=== PATIENT | male | born 1980 | race Caucasian/White ===

== ENCOUNTER 2018-03-05 04:35 | Inpatient (IN) ==
--- NOTE | 2018-03-05 05:11 | Emergency Department Note ---
Disposition Clinical Impression: Suicidal ideation Depression Qualifiers: Depression Type: unspecified Qualified Code(s): F32.9 - Major depressive disorder, single episode, unspecified Disposition: Admitted As Inpatient Condition: Good Referrals: Jennifer Bonilla CNP [Primary Care Provider] - Time of Disposition: 06:36 Psych HPI - General Chief Complaint: ED Psychiatric Symptoms Stated Complaint: SI Time Seen by Provider: 03/05/18 04:56 Source: EMS Nursing Notes Reviewed: Yes Vital Signs Reviewed: Yes - History of Present Illness Pt complaint: suicidal ideation If medical clearance, reason: psychiatric condition Onset (ago): hour(s) Duration: getting worse History of similar episodes: Yes Improves with: none Worsens with: none Context: significant life stressor Alleged intoxication: No Associated Psychiatric Symptoms: depression, suicidal ideation Associated symptoms: Reports: vomiting Traumatic symptoms: neck injury (right anterior abrasion) Treatments prior to arrival: none Self harm or harm to others: admits thoughts of self harm, has plan (stabbing himself, overdose), has acted on plan (attempted stabbing his neck, ingesting bottle of [place] shampoo) - Related Data Previous Rx's Medication Instructions Recorded Ondansetron [Zofran] 4 mg PO Q8HR #10 tablet 11/09/15 Amoxicillin/Clavulanate [Augmentin] 875 mg PO BIDWM #20 tablet 10/16/16 HYDROcodone/Acet 5/325 mg [[place] 1 tab PO Q6H PRN #10 tab 10/16/16 5-325 mg] HYDROcodone/Acet 5/325 mg [[place] 1 tab PO Q6H PRN #10 tab 10/18/16 5-325 mg] Omeprazole [PriLOSEC] 20 mg PO DAILY #30 cap 10/18/16 Ondansetron ODT [Zofran ODT] 4 mg SL Q6HR #10 tab.rapdis 10/18/16 Amoxicillin/Clavulanate [Augmentin] 875 mg PO BIDWM #20 tablet 04/12/17 Ciprofloxacin/Dex *EAR* Susp 4 drop LEFT EAR BID #1 bottle 04/12/17 [Ciprodex *EAR* Susp] HYDROcodone/Acet 5/325 mg [[place] 1 tab PO Q4H PRN #10 tab 04/12/17 5-325 mg] Naproxen [Naprosyn] 500 mg PO BID PRN #20 tablet 04/12/17 Clindamycin [Cleocin] 300 mg PO TID 7 Days capsule 06/17/17 Ibuprofen [Motrin] 600 mg PO Q6HR PRN #30 tab 06/17/17 HYDROcodone/Acet 5/325 mg [[place] 1 tab PO Q4H PRN 1 Days #4 tab 01/30/18 5-325 mg] Amoxicillin [Amoxil] 1,000 mg PO BID #28 capsule 03/01/18 Allergies Allergy/AdvReac Type Severity Reaction Status Date / Time codeine Allergy Hives Verified 01/30/18 17:51 All systems ED: reviewed and negative except as stated. Review of Systems: As Per HPI Constitutional: Denies: fever, chills Eyes: Denies: eye pain ENT ED: Denies: ear pain, throat pain Cardiovascular: Denies: chest pain Respiratory: Denies: dyspnea Gastrointestinal: Reports: as per HPI Genitourinary: Denies: dysuria Musculoskeletal: Reports: as per HPI Integumentary: Denies: rash Psychiatric: Reports: depression, suicidal thoughts Endocrine: Denies: fatigue Hematological/Lymphatic: Denies: easy bleeding Allergic/Immunologic: Denies: facial swelling Past Medical History - Past Medical History Medical history: Reports: diabetes, seizures Psychiatric history: Reports: depression - Social History Smoking Status: Current every day smoker Smokeless Tobacco Status: No Alcohol use: Reports: occasionally Drug use: Reports: none Physical Exam - General Limitations: no limitations General appearance: alert, in no apparent distress - Head Head exam: normocephalic - Eye Eye exam: Present: EOMI. Absent: conjunctival injection - ENT ENT exam: normal oropharynx, mucous membranes moist - Neck Neck exam: Present: full ROM, other (erythema/abrasions over right anterior neck , no active bleeding ) - Chest Chest inspection: Present: normal inspection, symmetric chest wall rise - Respiratory Respiratory exam: Present: normal lung sounds bilaterally. Absent: respiratory distress, wheezes, stridor, accessory muscle use - Cardiovascular Cardiovascular exam: Present: regular rate, normal rhythm - Abdominal Exam Abdominal exam: Present: soft, Non-Tender - Extremities Exam Extremities exam: Present: normal inspection, full ROM, normal capillary refill - Back Exam Back exam: Present: full ROM. Absent: CVA tenderness (R), CVA tenderness (L) - Neurological Exam Neurological exam: Present: alert - Psychiatric Psychiatric exam: Present: normal affect, normal mood, suicidal ideation - Skin Skin exam: Present: warm, dry, intact, normal color. Absent: rash, cyanosis, diaphoresis Course Course Narrative: Patient is a 38-year-old male with stated history depression, and suicidal ideation. He arrives via squad. Squad reports that on the bike [place]. Patient states that he has feelings of depression, thoughts to hurt himself. He mentions he has not taken his Zoloft for a week. He mentions he had attempted to slice his wrist previously, and tonight he had drank a bottle of [place] shampoo and to hurt himself. I approximated his had occurred approximately 3-6 hours prior to his arrival. Patient is unsure the size bottle , but states it took 3 or 4 mouthfuls to swallow it. He does mention that throughout shortly after ingesting it. He denies any other drug or alcohol use. Patient seen and examined. his vitals within normal limits. We will attempt to medically clear him for psychiatric evaluation. I did call poison control, who advised for symptomatic treatment, otherwise no concern from shampoo who other than likely nausea and vomiting. - Reevaluation(s) Reevaluation #1: At this point it is the end of my shift, care of this patient will be transferred over to day shift provider Kadi Weeks CNP. Please see her documentation for further details. Patient is stable and resting in his exam room. His workup is all but complete appears to be unremarkable, however he still has been unable to void. Urine drug screen and urinalysis is still pending. Patient is agreeable to a straight catheter. At this point, I feel patient will be medically cleared, and evaluated by behavioral staff, and likely admitted, or transferred for inpatient treatment and stabilization. However please see [facility]'s documentation for final details on his disposition and any changes to this plan. Time: 06:33 Vital Signs Temperature 98.1 F 03/05/18 04:40 Pulse Rate 83 03/05/18 04:40 Respiratory Rate 18 03/05/18 04:40 Blood Pressure 144/93 03/05/18 04:40 O2 Sat by Pulse Oximetry 98 03/05/18 04:40 Temperature 98.1 F 03/05/18 04:40 Pulse Rate 79 03/05/18 06:38 Respiratory Rate 18 03/05/18 06:38 Blood Pressure 124/82 03/05/18 06:38 O2 Sat by Pulse Oximetry 95 03/05/18 06:38 Oxygen Delivery Oxygen Delivery Room Air Psych - Lab Data Result diagrams: 03/05/18 04:46 03/05/18 04:46 Lab Results 03/05/18 03/05/18 Range/Units 04:46 04:46 WBC 11.1 (4.3-11.1) K/mcL RBC 5.27 (4.19-5.50) M/mcL Hgb 16.0 (12.9-16.9) g/dL Hct 45.9 (37.5-50.1) % MCV 87.1 (83.0-100.0) fL MCH 30.4 (28.0-33.3) pg MCHC 34.9 (31.6-35.5) g/dL RDW 12.5 (11.5-14.5) % Plt Count 263 (140-400) K/mcL MPV 9.7 (9.4-12.4) fL Immature Gran % 0.4 (0-4) % Seg Neutrophils % 65.8 % Lymphocytes % 27.2 % Monocytes % 5.4 % Eosinophils % 0.7 % Basophils % 0.5 % Neutrophils # 7.3 (1.6-8.9) K/mcL Lymphocytes # 3.0 (0.6-4.6) K/mcL Monocytes # 0.6 (0.0-1.3) K/mcL Eosinophils # 0.1 (0.0-0.6) K/mcL Basophils # 0.1 (0.0-0.2) K/mcL Sodium 138 (136-145) mEq/L Potassium 3.5 (3.5-5.1) mEq/L Chloride 110 H (98-107) mEq/L Carbon Dioxide 21 L (23-29) mEq/L BUN 12 (6-20) mg/dL Creatinine 0.73 (0.70-1.30) mg/dL Est GFR ( Amer) > 60 (> 60) Est GFR (Non-Af Amer) > 60 (> 60) BUN/Creatinine Ratio 16 (6-26) Glucose 216 H (70-105) mg/dL Calculated Osmolality 292 (280-300) Calcium 9.1 (8.6-10.3) mg/dL Salicylates < 2.5 L (15.0-30.0) mg/dL Acetaminophen < 10 L (10-20) mcg/mL Ethyl Alcohol < 10 (Less than 10) mg/dL Psychiatric Medical Clearance - Medical Clearance Checklist Medical History: No Social History Section defined Current Vitals: Last Vital Signs Temp 98.1 F 03/05/18 04:40 Pulse 79 03/05/18 06:38 Resp 18 03/05/18 06:38 BP 124/82 03/05/18 06:38 Pulse Ox 95 03/05/18 06:38 Psychiatric Lab Panel: Drug Levels and Toxicity 03/05/18 04:46 Acetaminophen < 10 L Ethyl Alcohol < 10 Abnormal Labs: Abnormal lab results Chloride 110 mEq/L (98-107) H 03/05/18 04:46 Carbon Dioxide 21 mEq/L (23-29) L 03/05/18 04:46 Glucose 216 mg/dL (70-105) H 03/05/18 04:46 Salicylates < 2.5 mg/dL (15.0-30.0) L 03/05/18 04:46 Acetaminophen < 10 mcg/mL (10-20) L 03/05/18 04:46 Statement of Medical Clearance: I have evaluated the patient, reviewed diagnostic information, and certify that the patient's medical condition is sufficiently stable that transfer to the psychiatric unit does not pose a significant risk of deterioration.
[2018-03-05 05:14] LABS: Basophils # 0.1 K/mcL (0.0-0.2); Basophils % 0.5 %; Eosinophils # 0.1 K/mcL (0.0-0.6); Eosinophils % 0.7 %; Hematocrit 45.9 % (37.5-50.1); Immature Granulocytes % 0.4 % (0-4); Lymphocytes % 27.2 %; Mean Corpuscular HGB Conc 34.9 g/dL (31.6-35.5); Mean Corpuscular Hemoglobin 30.4 pg (28.0-33.3); Mean Corpuscular Volume 87.1 fL (83.0-100.0); Mean Platelet Volume 9.7 fL (9.4-12.4); Monocytes # 0.6 K/mcL (0.0-1.3); Monocytes % 5.4 %; Neutrophils # 7.3 K/mcL (1.6-8.9); Platelet Count 263 K/mcL (140-400); Red Blood Count 5.27 M/mcL (4.19-5.50); Red Cell Distribution Width 12.5 % (11.5-14.5); Segmented Neutrophils % 65.8 %
[2018-03-05 05:23] LABS: Acetaminophen < 10 mcg/mL (10-20); BUN/Creatinine Ratio 16 (6-26); Blood Urea Nitrogen 12 mg/dL (6-20); Calcium 9.1 mg/dL (8.6-10.3); Carbon Dioxide 21 mEq/L (23-29); Chloride 110 mEq/L (98-107); Ethanol < 10 mg/dL (Less than 10); Glucose 216 mg/dL (70-105); Osmolality,Calculated 292 (280-300); Potassium 3.5 mEq/L (3.5-5.1); Salicylate < 2.5 mg/dL (15.0-30.0); Sodium 138 mEq/L (136-145); eGFR For African Americans > 60 (> 60); eGFR For Non-African Americans > 60 (> 60)
[2018-03-05 07:03] LABS: Bilirubin,Urine Small (Negative); Blood,Urine Negative (Negative); Clarity,Urine Clear (Clear); Color,Urine Dark Yellow (Yellow); Glucose,Urine (UA) 250 mg/dL (Normal); Ketones,Urine Negative (Negative); Leukocyte Esterase,Urine Negative (Negative); Nitrite,Urine Negative (Negative); Protein,Urine Negative (Neg-Trace); Specific Gravity,Urine > 1.030 (1.010-1.025); Urobilinogen,Urine Normal (Normal)
[2018-03-05 07:22] LABS: Amphetamine Screen,Urine Negative ng/mL (Cutoff=1000); Barbiturate Screen,Urine Negative ng/mL (Cutoff=200); Benzodiazepines Screen,Urine Negative ng/mL (Cutoff=200); Cannabinoid Screen,Urine Negative ng/mL (Cutoff = 50); Cocaine Screen,Urine Negative ng/mL (Cutoff= 300); Opiate Screen,Urine Negative ng/mL (Cutoff=300); Phencyclidine Screen,Urine Negative ng/mL (Cutoff=25)
--- NOTE | 2018-03-05 09:46 | Emergency Department Note ---
Disposition Clinical Impression: Suicidal ideation Depression Qualifiers: Depression Type: unspecified Qualified Code(s): F32.9 - Major depressive disorder, single episode, unspecified Disposition: Still a Patient Condition: Good Referrals: Jennifer Bonilla CNP [Primary Care Provider] - Psych HPI - General Chief Complaint: ED Psychiatric Symptoms Stated Complaint: SI Time Seen by Provider: 03/05/18 04:56 Source: EMS - History of Present Illness Pt complaint: suicidal ideation Duration: getting worse Improves with: none Worsens with: none Associated symptoms: Reports: vomiting Treatments prior to arrival: none - Related Data Previous Rx's Medication Instructions Recorded Ondansetron [Zofran] 4 mg PO Q8HR #10 tablet 11/09/15 Amoxicillin/Clavulanate [Augmentin] 875 mg PO BIDWM #20 tablet 10/16/16 HYDROcodone/Acet 5/325 mg [[place] 1 tab PO Q6H PRN #10 tab 10/16/16 5-325 mg] HYDROcodone/Acet 5/325 mg [[place] 1 tab PO Q6H PRN #10 tab 10/18/16 5-325 mg] Omeprazole [PriLOSEC] 20 mg PO DAILY #30 cap 10/18/16 Ondansetron ODT [Zofran ODT] 4 mg SL Q6HR #10 tab.rapdis 10/18/16 Amoxicillin/Clavulanate [Augmentin] 875 mg PO BIDWM #20 tablet 04/12/17 Ciprofloxacin/Dex *EAR* Susp 4 drop LEFT EAR BID #1 bottle 04/12/17 [Ciprodex *EAR* Susp] HYDROcodone/Acet 5/325 mg [[place] 1 tab PO Q4H PRN #10 tab 04/12/17 5-325 mg] Naproxen [Naprosyn] 500 mg PO BID PRN #20 tablet 04/12/17 Clindamycin [Cleocin] 300 mg PO TID 7 Days capsule 06/17/17 Ibuprofen [Motrin] 600 mg PO Q6HR PRN #30 tab 06/17/17 HYDROcodone/Acet 5/325 mg [[place] 1 tab PO Q4H PRN 1 Days #4 tab 01/30/18 5-325 mg] Amoxicillin [Amoxil] 1,000 mg PO BID #28 capsule 03/01/18 Allergies Allergy/AdvReac Type Severity Reaction Status Date / Time codeine Allergy Hives Verified 01/30/18 17:51 Constitutional: Denies: fever, chills Eyes: Denies: eye pain ENT ED: Denies: ear pain, throat pain Cardiovascular: Denies: chest pain Respiratory: Denies: dyspnea Gastrointestinal: Reports: as per HPI Genitourinary: Denies: dysuria Musculoskeletal: Reports: as per HPI Integumentary: Denies: rash Psychiatric: Reports: depression, suicidal thoughts Endocrine: Denies: fatigue Hematological/Lymphatic: Denies: easy bleeding Allergic/Immunologic: Denies: facial swelling Past Medical History - Past Medical History Medical history: Reports: diabetes, seizures Psychiatric history: Reports: depression - Social History Smoking Status: Current every day smoker Smokeless Tobacco Status: No Alcohol use: Reports: occasionally Drug use: Reports: none Physical Exam - General Limitations: no limitations General appearance: alert, in no apparent distress Course Vital Signs Temperature 98.1 F 03/05/18 04:40 Pulse Rate 83 03/05/18 04:40 Respiratory Rate 18 03/05/18 04:40 Blood Pressure 144/93 03/05/18 04:40 O2 Sat by Pulse Oximetry 98 03/05/18 04:40 Temperature 98.6 F 03/05/18 08:32 Pulse Rate 82 03/05/18 08:32 Respiratory Rate 18 03/05/18 08:32 Blood Pressure 131/85 03/05/18 08:32 O2 Sat by Pulse Oximetry 95 03/05/18 08:32 Oxygen Delivery Oxygen Delivery Room Air Psych - MDM Narrative Medical decision making narrative: Received report from Dario Angeles PA-C, 38 year old male with history of depression presents with suicidal ideation. Plan: medical clearance and 1A evaluation. 11:00 Am, 1a completed evaluation, will discuss with Psychiatrist for treatment plan. Report given to Dr. Joce Mahajan due to shift change. - Lab Data Result diagrams: 03/05/18 04:46 03/05/18 04:46 Lab Results 03/05/18 03/05/18 03/05/18 Range/Units 04:46 04:46 06:52 WBC 11.1 (4.3-11.1) K/mcL RBC 5.27 (4.19-5.50) M/mcL Hgb 16.0 (12.9-16.9) g/dL Hct 45.9 (37.5-50.1) % MCV 87.1 (83.0-100.0) fL MCH 30.4 (28.0-33.3) pg MCHC 34.9 (31.6-35.5) g/dL RDW 12.5 (11.5-14.5) % Plt Count 263 (140-400) K/mcL MPV 9.7 (9.4-12.4) fL Immature Gran % 0.4 (0-4) % Seg Neutrophils % 65.8 % Lymphocytes % 27.2 % Monocytes % 5.4 % Eosinophils % 0.7 % Basophils % 0.5 % Neutrophils # 7.3 (1.6-8.9) K/mcL Lymphocytes # 3.0 (0.6-4.6) K/mcL Monocytes # 0.6 (0.0-1.3) K/mcL Eosinophils # 0.1 (0.0-0.6) K/mcL Basophils # 0.1 (0.0-0.2) K/mcL Sodium 138 (136-145) mEq/L Potassium 3.5 (3.5-5.1) mEq/L Chloride 110 H (98-107) mEq/L Carbon Dioxide 21 L (23-29) mEq/L BUN 12 (6-20) mg/dL Creatinine 0.73 (0.70-1.30) mg/dL Est GFR ( Amer) > 60 (> 60) Est GFR (Non-Af Amer) > 60 (> 60) BUN/Creatinine Ratio 16 (6-26) Glucose 216 H (70-105) mg/dL Calculated Osmolality 292 (280-300) Calcium 9.1 (8.6-10.3) mg/dL Urine Color Dark Yellow (Yellow) Urine Clarity Clear (Clear) Urine pH 5.0 (5.0-8.0) pH Units Ur Specific [place] > 1.030 H (1.010-1.025) Urine Protein Negative (Neg-Trace) mg/dL Urine Glucose (UA) 250 H (Normal) mg/dL Urine Ketones Negative (Negative) mg/dL Urine Blood Negative (Negative) Urine Nitrite Negative (Negative) Urine Bilirubin Small H (Negative) Urine Urobilinogen Normal (Normal) mg/dL Ur Leukocyte Esterase Negative (Negative) Salicylates < 2.5 L (15.0-30.0) mg/dL Urine Opiates Screen (Trhvkv=260) ng/mL Acetaminophen < 10 L (10-20) mcg/mL Ur Barbiturates Screen (Hgjdut=005) ng/mL Ur Phencyclidine Scrn (Cutoff=25) ng/mL Ur Amphetamines Screen (Pwecyc=6010) ng/mL U Benzodiazepines Scrn (Kguvwu=934) ng/mL Urine Cocaine Screen (Cutoff= 300) ng/mL U Marijuana (THC) Screen (Cutoff = 50) ng/mL Ethyl Alcohol < 10 (Less than 10) mg/dL 03/05/18 Range/Units 06:52 WBC (4.3-11.1) K/mcL RBC (4.19-5.50) M/mcL Hgb (12.9-16.9) g/dL Hct (37.5-50.1) % MCV (83.0-100.0) fL MCH (28.0-33.3) pg MCHC (31.6-35.5) g/dL RDW (11.5-14.5) % Plt Count (140-400) K/mcL MPV (9.4-12.4) fL Immature Gran % (0-4) % Seg Neutrophils % % Lymphocytes % % Monocytes % % Eosinophils % % Basophils % % Neutrophils # (1.6-8.9) K/mcL Lymphocytes # (0.6-4.6) K/mcL Monocytes # (0.0-1.3) K/mcL Eosinophils # (0.0-0.6) K/mcL Basophils # (0.0-0.2) K/mcL Sodium (136-145) mEq/L Potassium (3.5-5.1) mEq/L Chloride (98-107) mEq/L Carbon Dioxide (23-29) mEq/L BUN (6-20) mg/dL Creatinine (0.70-1.30) mg/dL Est GFR ( Amer) (> 60) Est GFR (Non-Af Amer) (> 60) BUN/Creatinine Ratio (6-26) Glucose (70-105) mg/dL Calculated Osmolality (280-300) Calcium (8.6-10.3) mg/dL Urine Color (Yellow) Urine Clarity (Clear) Urine pH (5.0-8.0) pH Units Ur Specific [place] (1.010-1.025) Urine Protein (Neg-Trace) mg/dL Urine Glucose (UA) (Normal) mg/dL Urine Ketones (Negative) mg/dL Urine Blood (Negative) Urine Nitrite (Negative) Urine Bilirubin (Negative) Urine Urobilinogen (Normal) mg/dL Ur Leukocyte Esterase (Negative) Salicylates (15.0-30.0) mg/dL Urine Opiates Screen Negative (Egrxfp=554) ng/mL Acetaminophen (10-20) mcg/mL Ur Barbiturates Screen Negative (Ynbdvh=367) ng/mL Ur Phencyclidine Scrn Negative (Cutoff=25) ng/mL Ur Amphetamines Screen Negative (Zygjoa=2021) ng/mL U Benzodiazepines Scrn Negative (Qrfhoj=036) ng/mL Urine Cocaine Screen Negative (Cutoff= 300) ng/mL U Marijuana (THC) Screen Negative (Cutoff = 50) ng/mL Ethyl Alcohol (Less than 10) mg/dL Psychiatric Medical Clearance - Medical Clearance Checklist Medical History: No Social History Section defined Current Vitals: Last Vital Signs Temp 98.6 F 03/05/18 08:32 Pulse 82 03/05/18 08:32 Resp 18 03/05/18 08:32 BP 131/85 03/05/18 08:32 Pulse Ox 95 03/05/18 08:32 Psychiatric Lab Panel: Drug Levels and Toxicity 03/05/18 03/05/18 04:46 06:52 Urine Opiates Screen Negative Acetaminophen < 10 L Ur Barbiturates Screen Negative Ur Phencyclidine Scrn Negative Ur Amphetamines Screen Negative U Benzodiazepines Scrn Negative Urine Cocaine Screen Negative U Marijuana (THC) Screen Negative Ethyl Alcohol < 10 Abnormal Labs: Abnormal lab results Chloride 110 mEq/L (98-107) H 03/05/18 04:46 Carbon Dioxide 21 mEq/L (23-29) L 03/05/18 04:46 Glucose 216 mg/dL (70-105) H 03/05/18 04:46 Ur Specific [place] > 1.030 (1.010-1.025) H 03/05/18 06:52 Urine Glucose (UA) 250 mg/dL (Normal) H 03/05/18 06:52 Urine Bilirubin Small (Negative) H 03/05/18 06:52 Salicylates < 2.5 mg/dL (15.0-30.0) L 03/05/18 04:46 Acetaminophen < 10 mcg/mL (10-20) L 03/05/18 04:46 Statement of Medical Clearance: I have evaluated the patient, reviewed diagnostic information, and certify that the patient's medical condition is sufficiently stable that transfer to the psychiatric unit does not pose a significant risk of deterioration. S.B.A.R. - S.B.A.Rm. Situation: Demographics, MOA Background: Presenting Complaint, Relevant PMH, Meds, & Allergies Assessment: Vital Signs, Course and respsone to treatment, Exam Concerns, Patient/Family Expectation, Pertinant Lab Results, Outstanding Labs Recommendation: Barrier(s) to disposition, Recommendation based on pending studies, treatments, or consults S.B.A.R. Report Given to: Dr. Hobson J
--- NOTE | 2018-03-05 14:24 | Emergency Department Note ---
Disposition Clinical Impression: Suicidal ideation Depression Qualifiers: Depression Type: unspecified Qualified Code(s): F32.9 - Major depressive disorder, single episode, unspecified Disposition: Admitted As Inpatient Condition: Good Referrals: Jennifer Bonilla CNP [Primary Care Provider] - Psych HPI - General Chief Complaint: ED Psychiatric Symptoms Stated Complaint: SI Time Seen by Provider: 03/05/18 04:56 Source: EMS Mode of arrival: ambulatory Limitations: no limitations Nursing Notes Reviewed: Yes Vital Signs Reviewed: Yes - History of Present Illness Duration: getting worse Improves with: none Worsens with: none Associated symptoms: Reports: vomiting Treatments prior to arrival: none - Related Data Home Medications Medication Instructions Recorded Confirmed No Known Home Drugs 03/05/18 03/05/18 Allergies Allergy/AdvReac Type Severity Reaction Status Date / Time codeine Allergy Hives Verified 03/05/18 12:21 Constitutional: Denies: fever, chills Eyes: Denies: eye pain ENT ED: Denies: ear pain, throat pain Cardiovascular: Denies: chest pain Respiratory: Denies: dyspnea Gastrointestinal: Reports: as per HPI Genitourinary: Denies: dysuria Musculoskeletal: Reports: as per HPI Integumentary: Denies: rash Psychiatric: Reports: depression, suicidal thoughts Endocrine: Denies: fatigue Hematological/Lymphatic: Denies: easy bleeding Allergic/Immunologic: Denies: facial swelling Past Medical History - Past Medical History Medical history: Reports: diabetes, seizures Psychiatric history: Reports: depression - Social History Smoking Status: Current every day smoker Smokeless Tobacco Status: No Alcohol use: Reports: occasionally Drug use: Reports: none Physical Exam - General Limitations: no limitations General appearance: alert, in no apparent distress Course Vital Signs Temperature 98.1 F 03/05/18 04:40 Pulse Rate 83 03/05/18 04:40 Respiratory Rate 18 03/05/18 04:40 Blood Pressure 144/93 03/05/18 04:40 O2 Sat by Pulse Oximetry 98 03/05/18 04:40 Temperature 98.6 F 03/05/18 08:32 Pulse Rate 83 03/05/18 13:33 Respiratory Rate 14 03/05/18 13:33 Blood Pressure 120/74 03/05/18 13:33 O2 Sat by Pulse Oximetry 95 03/05/18 13:33 Oxygen Delivery Oxygen Delivery Room Air Psych - MDM Narrative Medical decision making narrative: Patient received in sign out pending behavioral [facility] evaluation and disposition. [facility] health evaluated the patient and recommend that he be admitted to for further care and evaluation. Patient will be admitted to Dr. Monteiro - Lab Data Result diagrams: 03/05/18 04:46 03/05/18 04:46 Lab Results 03/05/18 03/05/18 03/05/18 Range/Units 04:46 04:46 06:52 WBC 11.1 (4.3-11.1) K/mcL RBC 5.27 (4.19-5.50) M/mcL Hgb 16.0 (12.9-16.9) g/dL Hct 45.9 (37.5-50.1) % MCV 87.1 (83.0-100.0) fL MCH 30.4 (28.0-33.3) pg MCHC 34.9 (31.6-35.5) g/dL RDW 12.5 (11.5-14.5) % Plt Count 263 (140-400) K/mcL MPV 9.7 (9.4-12.4) fL Immature Gran % 0.4 (0-4) % Seg Neutrophils % 65.8 % Lymphocytes % 27.2 % Monocytes % 5.4 % Eosinophils % 0.7 % Basophils % 0.5 % Neutrophils # 7.3 (1.6-8.9) K/mcL Lymphocytes # 3.0 (0.6-4.6) K/mcL Monocytes # 0.6 (0.0-1.3) K/mcL Eosinophils # 0.1 (0.0-0.6) K/mcL Basophils # 0.1 (0.0-0.2) K/mcL Sodium 138 (136-145) mEq/L Potassium 3.5 (3.5-5.1) mEq/L Chloride 110 H (98-107) mEq/L Carbon Dioxide 21 L (23-29) mEq/L BUN 12 (6-20) mg/dL Creatinine 0.73 (0.70-1.30) mg/dL Est GFR ( Amer) > 60 (> 60) Est GFR (Non-Af Amer) > 60 (> 60) BUN/Creatinine Ratio 16 (6-26) Glucose 216 H (70-105) mg/dL Calculated Osmolality 292 (280-300) Calcium 9.1 (8.6-10.3) mg/dL Urine Color Dark Yellow (Yellow) Urine Clarity Clear (Clear) Urine pH 5.0 (5.0-8.0) pH Units Ur Specific [place] > 1.030 H (1.010-1.025) Urine Protein Negative (Neg-Trace) mg/dL Urine Glucose (UA) 250 H (Normal) mg/dL Urine Ketones Negative (Negative) mg/dL Urine Blood Negative (Negative) Urine Nitrite Negative (Negative) Urine Bilirubin Small H (Negative) Urine Urobilinogen Normal (Normal) mg/dL Ur Leukocyte Esterase Negative (Negative) Salicylates < 2.5 L (15.0-30.0) mg/dL Urine Opiates Screen (Nwxupg=319) ng/mL Acetaminophen < 10 L (10-20) mcg/mL Ur Barbiturates Screen (Ihehfn=998) ng/mL Ur Phencyclidine Scrn (Cutoff=25) ng/mL Ur Amphetamines Screen (Ftmiic=6796) ng/mL U Benzodiazepines Scrn (Tmaibn=575) ng/mL Urine Cocaine Screen (Cutoff= 300) ng/mL U Marijuana (THC) Screen (Cutoff = 50) ng/mL Ethyl Alcohol < 10 (Less than 10) mg/dL 03/05/18 Range/Units 06:52 WBC (4.3-11.1) K/mcL RBC (4.19-5.50) M/mcL Hgb (12.9-16.9) g/dL Hct (37.5-50.1) % MCV (83.0-100.0) fL MCH (28.0-33.3) pg MCHC (31.6-35.5) g/dL RDW (11.5-14.5) % Plt Count (140-400) K/mcL MPV (9.4-12.4) fL Immature Gran % (0-4) % Seg Neutrophils % % Lymphocytes % % Monocytes % % Eosinophils % % Basophils % % Neutrophils # (1.6-8.9) K/mcL Lymphocytes # (0.6-4.6) K/mcL Monocytes # (0.0-1.3) K/mcL Eosinophils # (0.0-0.6) K/mcL Basophils # (0.0-0.2) K/mcL Sodium (136-145) mEq/L Potassium (3.5-5.1) mEq/L Chloride (98-107) mEq/L Carbon Dioxide (23-29) mEq/L BUN (6-20) mg/dL Creatinine (0.70-1.30) mg/dL Est GFR ( Amer) (> 60) Est GFR (Non-Af Amer) (> 60) BUN/Creatinine Ratio (6-26) Glucose (70-105) mg/dL Calculated Osmolality (280-300) Calcium (8.6-10.3) mg/dL Urine Color (Yellow) Urine Clarity (Clear) Urine pH (5.0-8.0) pH Units Ur Specific [place] (1.010-1.025) Urine Protein (Neg-Trace) mg/dL Urine Glucose (UA) (Normal) mg/dL Urine Ketones (Negative) mg/dL Urine Blood (Negative) Urine Nitrite (Negative) Urine Bilirubin (Negative) Urine Urobilinogen (Normal) mg/dL Ur Leukocyte Esterase (Negative) Salicylates (15.0-30.0) mg/dL Urine Opiates Screen Negative (Rdzyhw=715) ng/mL Acetaminophen (10-20) mcg/mL Ur Barbiturates Screen Negative (Mobvmu=218) ng/mL Ur Phencyclidine Scrn Negative (Cutoff=25) ng/mL Ur Amphetamines Screen Negative (Plavjq=4127) ng/mL U Benzodiazepines Scrn Negative (Rpnyiw=262) ng/mL Urine Cocaine Screen Negative (Cutoff= 300) ng/mL U Marijuana (THC) Screen Negative (Cutoff = 50) ng/mL Ethyl Alcohol (Less than 10) mg/dL Psychiatric Medical Clearance - Medical Clearance Checklist Medical History: No Social History Section defined Current Vitals: Last Vital Signs Temp 98.6 F 03/05/18 08:32 Pulse 83 03/05/18 13:33 Resp 14 03/05/18 13:33 BP 120/74 03/05/18 13:33 Pulse Ox 95 03/05/18 13:33 Psychiatric Lab Panel: Drug Levels and Toxicity 03/05/18 03/05/18 04:46 06:52 Urine Opiates Screen Negative Acetaminophen < 10 L Ur Barbiturates Screen Negative Ur Phencyclidine Scrn Negative Ur Amphetamines Screen Negative U Benzodiazepines Scrn Negative Urine Cocaine Screen Negative U Marijuana (THC) Screen Negative Ethyl Alcohol < 10 Abnormal Labs: Abnormal lab results Chloride 110 mEq/L (98-107) H 03/05/18 04:46 Carbon Dioxide 21 mEq/L (23-29) L 03/05/18 04:46 Glucose 216 mg/dL (70-105) H 03/05/18 04:46 Ur Specific [place] > 1.030 (1.010-1.025) H 03/05/18 06:52 Urine Glucose (UA) 250 mg/dL (Normal) H 03/05/18 06:52 Urine Bilirubin Small (Negative) H 03/05/18 06:52 Salicylates < 2.5 mg/dL (15.0-30.0) L 03/05/18 04:46 Acetaminophen < 10 mcg/mL (10-20) L 03/05/18 04:46 Statement of Medical Clearance: I have evaluated the patient, reviewed diagnostic information, and certify that the patient's medical condition is sufficiently stable that transfer to the psychiatric unit does not pose a significant risk of deterioration.
[2018-03-05] MEDS ORDERED: hydrOXYzine pamoate 25 MG CAPSULE PO PRN (15:39)
[2018-03-05] MEDS ORDERED: MOM Conc 10 ML UD.LIQ PO PRN (15:39)
[2018-03-05] MEDS ORDERED: Haloperidol Lactate 5 MG/ML VIAL IM PRN (15:39)
[2018-03-05] MEDS ORDERED: Mag Hydrox/Al Hydrox/Simeth 30 ML UDC PO PRN (15:39)
[2018-03-05] MEDS ORDERED: *HR* LORazepam 1 MG TABLET PO PRN ×2 (15:39→16:40)
[2018-03-05] MEDS ORDERED: *HR* LORazepam 2 MG/ML VIAL IM PRN ×2 (15:39→16:39)
[2018-03-05] MEDS ORDERED: Nicotine 21 MG PATCH.TD24 TD SCH (15:45)
[2018-03-05] MEDS ORDERED: Ondansetron ODT 4 MG TAB.RAPDIS SL PRN (16:29)
[2018-03-05] MEDS ORDERED: Ondansetron 4 MG/2 ML VIAL IM PRN (16:29)
[2018-03-05] MEDS ORDERED: *HR* Promethazine 25 MG/ML VIAL IM PRN (16:35)
[2018-03-05] MEDS: Ibuprofen 400 MG TABLET PO PRN ×2 (19:19→22:33)
[2018-03-05] MEDS: traZODone 50 MG TABLET PO PRN (22:33)
[2018-03-06] MEDS: Nicotine 21 MG PATCH.TD24 TD SCH (10:37)
--- NOTE | 2018-03-06 12:16 | Psychiatry History & Physical ---
Date of Encounter: 03/06/18 Time of Encounter: 11:15 History of Present Illness Patient Stated Chief Complaint: I am depressed, and not taking my antidepressants Medicare Admission Attestation: For traditional Medicare patients the provided hospital inpatient services are reasonable and necessary and in the case of services not specified as inpatient -only under 42 CFR 419.22 (n), that they are appropriately provided as inpatient services in accordance 42 CFR 412.3. For Critical Access Hospital the patient may reasonably be expected to be discharged or transferred to a hospital within 96 hours after admission to the Critical Access Hospital. Admitted From: Emergency Dept History of Present Illness: Pt is a 38yo ,, male, x1 with a divorce pending, 2 childeren (10D, 13S) who presents for Depression with SI, and personality D/O. Patient states that he has feelings of depression, thoughts to hurt himself. Pt noted he has not taken his Zoloft for a week or so. Pt noted a hx of prievisous suicide attempt via "slicing my wrist. " Pt noted he had drank a bottle of Panteen shampoo to hurt himself. Patient is unsure the size bottle, but states it took 3 or 4 mouthfuls to swallow it. Pt agreed to restart his zoloft and ask for additional medication to help with depression. Pt was educated on the risks benifits and side-effects of abilify and agreed to initiate it. Pt noted he is doing much better. Pt denied any side effects to current medications. Pt noted he felt safe and comfortable on the unit. Pt was in agreement with current treatment plan. Pt noted that he is doing alright today. Pt noted he slept about 11 hours last night. Pt noted his appetite is great. Pt rated his depression a 1, on a scale of zero to ten with ten being the worst and zero being none. Pt rate his anxiety a 4, on the same scale. Pt denied any auditory or visiual hallucinations. Pt denied any current thoughts to harm himself or anyone else. Pt noted that his parents and help support him. Pt noted that his Highest level of education is [employer]. Pt noted he is currently unemployed. Pt noted he currently lives with a friend. PT denied any family mental health hx of suicides. PT noted both his mother and brother are bipolar. Pt denies any current legal issues except his divorce. No TD noted, AIMS=0 MSE: Alert and Oriented x4 Appearance: appropriately groomed dressed in civilian attire Behavior: friendly, polite, courteous Speech: fluent, normal tone, normal rate Mood: better Affect: mood congruent Thought content: no HI noted, no SI noted, no delusions noted Psychosis: none noted, currently does not appear to be responding to internal stimuli. Thought Process: linear logical, goal directed. Judgment: questionable. Insight: good. Assessment/Plan 1.Interval hx 2.Continue current medications 3.Review current labs 4.Pt had an opportunity to ask questions and discuss current treatment plan. 5.Supportive therapy was provided 6.Pt encouraged to consider group or individual therapy 7.Pt was in agreement with treatment plan. 8.Pt was educated on the risks benefits and side effects of current medications and treatment plan. Past Med Surg Social Fam HX - Past Medical History Medical history: diabetes, seizures - Past Psychiatric History Psychiatric history: Reports: depression Family psychiatric history: Yes Family Psychiatric History Details: mother and brother bipolar Family History of Suicide: None - Social History Smoking Status: Current every day smoker Smokeless Tobacco Status: No Alcohol use: occasionally Drug use: none Medications & Allergies No Known Home Drugs 03/05/18 [History] 3 Allergy/AdvReac Type Severity Reaction Status Date / Time codeine Allergy Hives Verified 03/05/18 12:21 Exam - Constitutional Vitals: Temp Pulse Resp BP Pulse Ox 97.5 F L 77 14 126/90 95 03/06/18 09:00 03/06/18 09:00 03/06/18 09:00 03/06/18 09:00 03/05/18 13:33 - Psychiatric Patient Orientation: Yes Person, Yes Time, Yes Place, Yes Circumstance Level of alertness: Alert Behavior: calm, cooperative Psychomotor activity: Normal Eye Contact: Maintains Eye Contact Mood Description: Euthymic/stable Affect description: congruent with mood Speech Volume: Normal Speech pattern: normal rate, normal rhythm, normal tone, fluent Language & Vocabulary: consistent with education Thought Process: Intact, Logical, Linear, Goal Oriented Thought Content: Yes Intact Attention Span Ability: Capable of Focused Attention Memory Description: Grossly Intact Patient Reliability: Reliable Historian Fund of knowledge: Yes average Intelligence Estimate: Average Judgment: Fair Insight: Full Results - Labs Labs: Laboratory Last Values WBC 11.1 K/mcL (4.3-11.1) 03/05/18 04:46 RBC 5.27 M/mcL (4.19-5.50) 03/05/18 04:46 Hgb 16.0 g/dL (12.9-16.9) 03/05/18 04:46 Hct 45.9 % (37.5-50.1) 03/05/18 04:46 MCV 87.1 fL (83.0-100.0) 03/05/18 04:46 MCH 30.4 pg (28.0-33.3) 03/05/18 04:46 MCHC 34.9 g/dL (31.6-35.5) 03/05/18 04:46 RDW 12.5 % (11.5-14.5) 03/05/18 04:46 Plt Count 263 K/mcL (140-400) 03/05/18 04:46 MPV 9.7 fL (9.4-12.4) 03/05/18 04:46 Immature Gran % 0.4 % (0-4) 03/05/18 04:46 Seg Neutrophils % 65.8 % 03/05/18 04:46 Lymphocytes % 27.2 % 03/05/18 04:46 Monocytes % 5.4 % 03/05/18 04:46 Eosinophils % 0.7 % 03/05/18 04:46 Basophils % 0.5 % 03/05/18 04:46 Neutrophils # 7.3 K/mcL (1.6-8.9) 03/05/18 04:46 Lymphocytes # 3.0 K/mcL (0.6-4.6) 03/05/18 04:46 Monocytes # 0.6 K/mcL (0.0-1.3) 03/05/18 04:46 Eosinophils # 0.1 K/mcL (0.0-0.6) 03/05/18 04:46 Basophils # 0.1 K/mcL (0.0-0.2) 03/05/18 04:46 Sodium 138 mEq/L (136-145) 03/05/18 04:46 Potassium 3.5 mEq/L (3.5-5.1) 03/05/18 04:46 Chloride 110 mEq/L (98-107) H 03/05/18 04:46 Carbon Dioxide 21 mEq/L (23-29) L 03/05/18 04:46 BUN 12 mg/dL (6-20) 03/05/18 04:46 Creatinine 0.73 mg/dL (0.70-1.30) 03/05/18 04:46 Est GFR ( Amer) > 60 (> 60) 03/05/18 04:46 Est GFR (Non-Af Amer) > 60 (> 60) 03/05/18 04:46 BUN/Creatinine Ratio 16 (6-26) 03/05/18 04:46 Glucose 216 mg/dL (70-105) H 03/05/18 04:46 Calculated Osmolality 292 (280-300) 03/05/18 04:46 Calcium 9.1 mg/dL (8.6-10.3) 03/05/18 04:46 Urine Color Dark Yellow (Yellow) 03/05/18 06:52 Urine Clarity Clear (Clear) 03/05/18 06:52 Urine pH 5.0 pH Units (5.0-8.0) 03/05/18 06:52 Ur Specific [place] > 1.030 (1.010-1.025) H 03/05/18 06:52 Urine Protein Negative mg/dL (Neg-Trace) 03/05/18 06:52 Urine Glucose (UA) 250 mg/dL (Normal) H 03/05/18 06:52 Urine Ketones Negative mg/dL (Negative) 03/05/18 06:52 Urine Blood Negative (Negative) 03/05/18 06:52 Urine Nitrite Negative (Negative) 03/05/18 06:52 Urine Bilirubin Small (Negative) H 03/05/18 06:52 Urine Urobilinogen Normal mg/dL (Normal) 03/05/18 06:52 Ur Leukocyte Esterase Negative (Negative) 03/05/18 06:52 Salicylates < 2.5 mg/dL (15.0-30.0) L 03/05/18 04:46 Urine Opiates Screen Negative ng/mL (Wwladb=614) 03/05/18 06:52 Acetaminophen < 10 mcg/mL (10-20) L 03/05/18 04:46 Ur Barbiturates Screen Negative ng/mL (Tromrn=869) 03/05/18 06:52 Ur Phencyclidine Scrn Negative ng/mL (Cutoff=25) 03/05/18 06:52 Ur Amphetamines Screen Negative ng/mL (Kdjdjv=6550) 03/05/18 06:52 U Benzodiazepines Scrn Negative ng/mL (Tjaoeq=734) 03/05/18 06:52 Urine Cocaine Screen Negative ng/mL (Cutoff= 300) 03/05/18 06:52 U Marijuana (THC) Screen Negative ng/mL (Cutoff = 50) 03/05/18 06:52 Ethyl Alcohol < 10 mg/dL (Less than 10) 03/05/18 04:46 Assessment and Plan (1) Suicidal ideation Current visit: Yes Status: Acute Plan: Admit inpatient for safety and stabilization Risks, benefits, side effects, alternatives discussed w/pt: Yes Patient agreeable to treatment: Yes (2) Depression Current visit: Yes Status: Acute Plan: Admit inpatient for safety and stabilization Risks, benefits, side effects, alternatives discussed w/pt: Yes Patient agreeable to treatment: Yes Qualifiers: Depression Type: unspecified Qualified Code(s): F32.9 - Major depressive disorder, single episode, unspecified
[2018-03-06] MEDS: ARIPiprazole 2 MG TABLET PO SCH (14:58)
[2018-03-06] MEDS: traZODone 50 MG TABLET PO PRN (20:47)
[2018-03-06] MEDS: Ibuprofen 400 MG TABLET PO PRN (20:48)
--- NOTE | 2018-03-07 08:27 | Psychiatry Progress Note ---
Date of Encounter: 03/07/18 Time of Encounter: 08:00 Results - Vital Signs Vital Signs: Temp Pulse Resp BP Pulse Ox 98.7 F 77 14 133/84 95 03/06/18 20:09 03/06/18 20:09 03/06/18 20:09 03/06/18 20:09 03/05/18 13:33 Assessment and Plan (1) Suicidal ideation Current visit: Yes Status: Acute Risks, benefits, side effects, alternatives discussed w/pt: Yes Patient agreeable to treatment: Yes (2) Depression Current visit: Yes Status: Acute Risks, benefits, side effects, alternatives discussed w/pt: Yes Patient agreeable to treatment: Yes Qualifiers: Depression Type: unspecified Qualified Code(s): F32.9 - Major depressive disorder, single episode, unspecified Consult Discharge Plan - Plan Psychiatry Exam - Constitutional Vitals: Temp Pulse Resp BP Pulse Ox 98.7 F 77 14 133/84 95 03/06/18 20:09 03/06/18 20:09 03/06/18 20:03/06/18 20:03/05/18 13:33
[2018-03-07] MEDS: ARIPiprazole 2 MG TABLET PO SCH (09:06)
[2018-03-07] MEDS: Nicotine 21 MG PATCH.TD24 TD SCH (09:06)
[2018-03-07 09:57] VITALS: BP 124/79
--- NOTE | 2018-03-07 19:36 | Discharge Summary ---
Date of Encounter: 03/08/18 Time of Encounter: 08:00 Diagnosis - Discharge Diagnosis (1) Suicidal ideation Priority: Primary Status: Acute (2) Depression Priority: Primary Status: Acute Qualifiers: Depression Type: unspecified Qualified Code(s): F32.9 - Major depressive disorder, single episode, unspecified Medications - Discharge Medications Prescriptions: ARIPiprazole [Abilify] 2 mg PO DAILY #30 tablet Sertraline [Zoloft] 100 mg PO DAILY #30 tablet ARIPiprazole [Abilify] 2 mg PO DAILY #30 tablet 03/07/18 [Rx] Sertraline [Zoloft] 100 mg PO DAILY #30 tablet 03/07/18 [Rx] 3 Allergy/AdvReac Type Severity Reaction Status Date / Time codeine Allergy Hives Verified 03/05/18 12:21 Provider Date of admission: 03/05/18 14:45 Primary care physician: PCP NONE Discharging clinician: Perez Monteiro Psychiatry Exam - Constitutional Vitals: Temp Pulse Resp BP Pulse Ox 97.7 F 67 20 124/79 95 03/07/18 09:00 03/07/18 09:00 03/07/18 09:00 03/07/18 09:00 03/05/18 13:33 General appearance: age & developmentally appropriate - Musculoskeletal Gait: normal Strength & Tone: normal for patient - Psychiatric Patient Orientation: Yes Person, Yes Time, Yes Place Level of alertness: Alert Behavior: calm, cooperative Psychomotor activity: Normal Eye Contact: Maintains Eye Contact Mood Description: Euthymic/stable Affect description: congruent with mood Speech Volume: Normal Speech pattern: normal rate Language & Vocabulary: consistent with education Thought Process: Intact, Logical, Linear, Goal Oriented Thought Content: Yes Intact Attention Span Ability: Capable of Focused Attention Memory Description: Grossly Intact Patient Reliability: Reliable Historian Fund of knowledge: Yes average Intelligence Estimate: Average Judgment: Good Insight: Full Hospital Course Hospital course: Pt is a 38yo ,, male, x1 with a divorce pending, 2 childeren ( 10D, 13S) who presents for Depression with SI, and personality D/O. Pt noted he is doing much better today. Pt noted he felt safe and comfortable to discharge home. Pt denied any side effects to current medications. Pt noted he felt safe and comfortable on the unit. Pt was in agreement with current treatment plan. Pt noted that he is doing really good today. Pt noted he slept about 11 hours last night. Pt noted his appetite is great. Pt rated his depression a 0, on a scale of zero to ten with ten being the worst and zero being none. Pt rate his anxiety a 0, on the same scale. Pt denied any auditory or visiual hallucinations. Pt denied any current thoughts to harm himself or anyone else. No TD noted, AIMS=0 MSE: Alert and Oriented x4 Appearance: appropriately groomed dressed in civilian attire Behavior: friendly, polite, courteous Speech: fluent, normal tone, normal rate Mood: good Affect: mood congruent Thought content: no HI noted, no SI noted, no delusions noted Psychosis: none noted, currently does not appear to be responding to internal stimuli. Thought Process: linear logical, goal directed. Judgment: fair. Insight: good. Assessment/Plan 1.Interval hx 2.Continue current medications 3.Review current labs 4.Pt had an opportunity to ask questions and discuss current treatment plan. 5.Supportive therapy was provided 6.Pt encouraged to consider group or individual therapy 7.Pt was in agreement with treatment plan. 8.Pt was educated on the risks benefits and side effects of current medications and treatment plan. 9. Discharge pt home 10. Abstain from any alcohol or illicit substances 11. Follow up with all scheduled appointments 12. take all medications as prescribed. Time spent discussing smoking cessation with patient: 3 to 10 minutes Does patient wish to continue nicotine replacement upon disc: No - Time Spent with Patient Total time spent providing and/or coordinating discharge services: Greater than 30 minutes Assessment and Plan - Patient/Caregiver Discharge Instructions Activity: resume usual activities as tolerated Diet: regular diet - Follow up Plan Follow up with: Denise Garcia [facility] [Outside] - 03/12/18 9:30 am (The above appointment is with Greg Watson for outpatient mental health counseling services. Please complete and bring the [facility] intake packet you were provided at the hospital to this appointment. When you come to your first appointment, you will be meeting with business office staff, meeting with a counselor, and developing a treatment plan. You will receive follow- up appointments for on- going services, which could include community support, mental health and substance abuse counseling, groups/partial hospitalization programming and medication assisted treatment. You will also need to bring the following to your first appointment as well: 1) proof of household income (two consecutive pay stubs, social security award letter, bank statement, statement letter from [facility], child support statement, IRS 1040 or W2 form, or a statement from the person who financially supports you stating they help provide for your basic needs), 2) proof of residency (drivers license, a piece of mail showing your address, a statement from person you live with verifying you live at their address), 3) your social security card, 4) photo ID, 5) your insurance card (if you have commercial insurance you must call to obtain a prior authorization number before you arrive to your first appointment) and 6) if you do not have insurance but have applied for Medicaid, please bring verification you have applied. The above appointment(s) reflects first availability. You may contact the office regularly to check for cancellations that may allow you to be seen sooner.) Jennifer Bonilla, AMILCAR [Advanced Practice Nurse] - 03/29/18 11:30 am (The above appointment is with Jennifer Bonilla for primary health care and medication management services.) Overall status at discharge: Stable Disposition: Home, Self-Care Quality - Multiple Antipsychotics Patient discharged on 2 or more antipsychotic medications: No (pt only on abilify)
== END 2018-03-07 20:18 | disposition home or self-care (01) | DRG 881 ==
LOC: EMEROO 04:35 → 1ANU 14:40
PROVIDERS: ADMIT General Practice; ATTEND General Practice

== ENCOUNTER 2018-06-24 16:04 | Observation (INO) ==
[2018-06-24] MEDS ORDERED: Isovue-370 500 ML INFUS..BTL IV ONE (16:41)
--- NOTE | 2018-06-24 16:41 | Emergency Department Note ---
Disposition Clinical Impression: Right facial numbness Chest pain Qualifiers: Chest pain type: unspecified Qualified Code(s): R07.9 - Chest pain, unspecified Disposition: Admitted As Inpatient Condition: Fair Referrals: Jennifer Bonilla CNP [Primary Care Provider] - Forms: ED Satisfaction Letter, Work/School Release Time of Disposition: 20:42 Neuro HPI - General Chief Complaint: ED General Medical Stated Complaint: "R side face numb,dizzy,everything hurts" Time Seen by Provider: 06/24/18 16:22 Source: patient Mode of arrival: ambulatory Limitations: no limitations Nursing Notes Reviewed: Yes Vital Signs Reviewed: Yes - History of Present Illness HPI Narrative: I have re-performed and reviewed the history documented by the medical student, and I confirm its accuracy except as noted below: Add to history of present illness: Chest pain is left-sided, described as sharp in nature, constant, does not radiate anywhere else, no associated dyspnea, does not worsen with exertion, no injuries, no rashes. For headache- denies any fevers, neck stiffness, headache was there upon wakening and was not sudden onset, did not wake him up out of sleep. - Related Data Home Medications: Previous Rx's Medication Instructions Recorded ARIPiprazole [Abilify] 2 mg PO DAILY #30 tablet 03/07/18 Sertraline [Zoloft] 100 mg PO DAILY #30 tablet 03/07/18 Acetaminophen [Tylenol] 500 mg PO Q6HR PRN #20 tablet 03/26/18 Amoxicillin/Clavulanate [Augmentin] 875 mg PO BIDWM #20 tablet 03/26/18 Naproxen [Naprosyn] 500 mg PO BID PRN #20 tablet 03/26/18 Allergies/Adverse Reactions: Allergies Allergy/AdvReac Type Severity Reaction Status Date / Time codeine Allergy Hives Verified 03/05/18 12:21 All systems ED: reviewed and negative except as stated. Constitutional: Denies: fever ENT ED: Reports: other (nasal congestion) Cardiovascular: Reports: chest pain Respiratory: Denies: cough, dyspnea Gastrointestinal: Denies: abdominal pain, nausea, vomiting, diarrhea Genitourinary: Denies: urgency, dysuria Integumentary: Denies: rash Neurological: Reports: headache, numbness (right face). Denies: weakness, paresthesias Past Medical History - Past Medical History Attestation: Yes The following information was validated with the patient. Source: patient Medical history: Reports: cancer, diabetes, seizures Psychiatric history: Reports: depression, prior suicide attempt - Social History Smoking Status: Current every day smoker Smokeless Tobacco Status: No Alcohol use: Reports: none Drug use: Reports: none Physical Exam - General Limitations: no limitations General appearance: alert, in no apparent distress - Head Head exam: atraumatic, normocephalic, normal inspection - Eye Eye exam: Present: normal appearance, PERRL, EOMI - ENT ENT exam: mucous membranes moist, other (right ear surgery, scarring of rigth TM ; ) - Neck Neck exam: Present: normal inspection, full ROM, trachea midline - Chest Chest inspection: Present: normal inspection, symmetric chest wall rise - Respiratory Respiratory exam: Present: normal lung sounds bilaterally - Cardiovascular Cardiovascular exam: Present: regular rate, normal rhythm, normal heart sounds - Abdominal Exam Abdominal exam: Present: soft, Non-Tender. Absent: tenderness, distention, guarding, rebound, rigidity - Extremities Exam Extremities exam: Present: normal inspection, full ROM. Absent: tenderness, pedal edema - Neurological Exam Neurological exam: Present: alert, oriented X3 - Expanded Neurological Exam Patient oriented to: Present: person, place, time Speech: Present: fluid speech Cranial nerves: EOM function (II, III, IV, ): Normal, facial sensation (V): Abnormal Right, facial palsy (VII): Normal, spinal accessory function (XI): Normal, tongue deviation (XII): Normal Motor strength - LUE: 5/5 Motor strength - RUE: 5/5 Motor strength - LLE: 5/5 Motor strength - RLE: 5/5 Coma Scale Eye Opening: Spontaneous Coma Scale Motor Response: Obeys Commands Coma Scale Verbal Response: Oriented Coma Scale Total: 15 - Psychiatric Psychiatric exam: Present: normal affect, normal mood - Skin Skin exam: Present: warm, dry, intact, normal color Course Course Narrative: NIH of 1 on physical exam due to right sensation decrease of the right forehead , right cheek, right chin. Patient also had symptoms sinus congestion. Otherwise, the rest of the physical exam was fairly benign. Currently concern for something leg venous sinus thrombosis due to loss of sensation of the right side of the face without any motor involvement. MRV ordered for further assessment. CT the head with noncontrast was also ordered to assess for anything like stroke. We will obtain basic blood work, troponin level, EKG, chest x-ray due to complaint of left sided chest discomfort. Patient will require admission for chest pain and for right-sided facial numbness after workup is completed. 19:36 No major abnormalities. Trop negative. EKG showed NSR with no acute ST changes. CXR negative. Head CT negative. MRV negative. Patient given aspirin , still having some left sided chest discomfort. Blood pressure systolic 110, do not want to give nitroglycerin at this time due to fear of hypotension. We will give the patient fentanyl for pain control instead. We will admit to the hospitalist for further CVA workup for right sided facial numbness, chest pain rule out. 19:50 spoke with hospitalist, Dr. Torres. He wanted d-dimer and urine drug screen before accepting. These have been ordered at this time. 20:35 d-dimer negative and urine drug screen negative. Will re-page hospitalist. Chest X-Ray 06/24/18 16:38 IMPRESSION: No radiographic evidence of acute cardiopulmonary disease. D/ / Loyd Augustine / Loyd Augustine Interpreting Provider: Loyd Augustine Head CT 06/24/18 17:03 IMPRESSION: No acute intracranial abnormality. D/ / Freya Juarez Cha, MD / Freya Juarez Cha, MD Interpreting Provider: Freya Juarez Cha, MD Head/Brain Mag Res Venography 06/24/18 17:03 IMPRESSION: Unremarkable MRV of the head. D/ / Mic Kovacs MD / Mic Kovacs MD Interpreting Provider: Mic Kovacs MD Vital Signs Temperature 98.5 F 06/24/18 16:23 Pulse Rate 102 06/24/18 16:23 Respiratory Rate 18 06/24/18 16:23 Blood Pressure 150/84 06/24/18 16:23 O2 Sat by Pulse Oximetry 95 06/24/18 16:23 Temperature 98.5 F 06/24/18 16:30 Pulse Rate 96 06/24/18 19:31 Respiratory Rate 25 06/24/18 19:31 Blood Pressure 118/84 06/24/18 19:31 O2 Sat by Pulse Oximetry 94 06/24/18 19:31 Oxygen Delivery Oxygen Delivery Room Air Neuro Symptoms/Deficit - MDM Narrative Medical decision making narrative: NIH of 1 on physical exam due to right sensation decrease of the right forehead , right cheek, right chin. Patient also had symptoms sinus congestion. Otherwise, the rest of the physical exam was fairly benign. Currently concern for something leg venous sinus thrombosis due to loss of sensation of the right side of the face without any motor involvement. MRV ordered for further assessment. CT the head with noncontrast was also ordered to assess for anything like stroke. We will obtain basic blood work, troponin level, EKG, chest x-ray due to complaint of left sided chest discomfort. Patient will require admission for chest pain and for right-sided facial numbness after workup is completed. 19:36 No major abnormalities. Trop negative. EKG showed NSR with no acute ST changes. CXR negative. Head CT negative. MRV negative. Patient given aspirin , still having some left sided chest discomfort. Blood pressure systolic 110, do not want to give nitroglycerin at this time due to fear of hypotension. We will give the patient fentanyl for pain control instead. We will admit to the hospitalist for further CVA workup for right sided facial numbness, chest pain rule out. - Medical Records Medical records reviewed: Yes I reviewed the patient's medical records. - Lab Data Lab results reviewed: Yes I reviewed the patient's lab results. Result diagrams: 06/24/18 16:43 06/24/18 16:37 Lab Results 06/24/18 06/24/18 06/24/18 Range/Units 16:37 16:43 16:43 WBC 10.2 (4.3-11.1) K/mcL RBC 5.28 (4.19-5.50) M/mcL Hgb 16.2 (12.9-16.9) g/dL Hct 46.5 (37.5-50.1) % MCV 88.1 (83.0-100.0) fL MCH 30.7 (28.0-33.3) pg MCHC 34.8 (31.6-35.5) g/dL RDW 12.2 (11.5-14.5) % Plt Count 242 (140-400) K/mcL MPV 10.4 (9.4-12.4) fL Immature Gran % 0.3 (0-4) % Seg Neutrophils % 84.0 % Lymphocytes % 8.8 % Monocytes % 5.7 % Eosinophils % 0.9 % Basophils % 0.3 % Neutrophils # 8.6 (1.6-8.9) K/mcL Lymphocytes # 0.9 (0.6-4.6) K/mcL Monocytes # 0.6 (0.0-1.3) K/mcL Eosinophils # 0.1 (0.0-0.6) K/mcL Basophils # 0.0 (0.0-0.2) K/mcL PT 12.3 H (9.4-12.1) Seconds INR 1.1 APTT 31.3 (26.0-36.0) Seconds D-Dimer Cancelled Sodium 136 (136-145) mEq/L Potassium 3.7 (3.5-5.1) mEq/L Chloride 103 (98-107) mEq/L Carbon Dioxide 23 (23-29) mEq/L BUN 14 (6-20) mg/dL Creatinine 0.94 (0.70-1.30) mg/dL Est GFR ( Amer) > 60 (> 60) Est GFR (Non-Af Amer) > 60 (> 60) BUN/Creatinine Ratio 15 (6-26) Glucose 199 H (70-105) mg/dL Calculated Osmolality 288 (280-300) Calcium 9.2 (8.6-10.3) mg/dL Troponin I < 0.03 (< 0.04) ng/mL Urine Color (Yellow) Urine Clarity (Clear) Urine pH (5.0-8.0) pH Units Ur Specific [place] (1.010-1.025) Urine Protein (Neg-Trace) mg/dL Urine Glucose (UA) (Normal) mg/dL Urine Ketones (Negative) mg/dL Urine Blood (Negative) Urine Nitrite (Negative) Urine Bilirubin (Negative) Urine Urobilinogen (Normal) mg/dL Ur Leukocyte Esterase (Negative) Ur Culture Indicated? (NO) Urine Opiates Screen (Xtelqm=049) ng/mL Ur Barbiturates Screen (Ojaysa=622) ng/mL Ur Phencyclidine Scrn (Cutoff=25) ng/mL Ur Amphetamines Screen (Clxrzk=8964) ng/mL U Benzodiazepines Scrn (Iusmxe=048) ng/mL Urine Cocaine Screen (Cutoff= 300) ng/mL U Marijuana (THC) Screen (Cutoff = 50) ng/mL Ur Drug Screen Interp 06/24/18 06/24/18 06/24/18 Range/Units 19:46 20:07 20:07 WBC (4.3-11.1) K/mcL RBC (4.19-5.50) M/mcL Hgb (12.9-16.9) g/dL Hct (37.5-50.1) % MCV (83.0-100.0) fL MCH (28.0-33.3) pg MCHC (31.6-35.5) g/dL RDW (11.5-14.5) % Plt Count (140-400) K/mcL MPV (9.4-12.4) fL Immature Gran % (0-4) % Seg Neutrophils % % Lymphocytes % % Monocytes % % Eosinophils % % Basophils % % Neutrophils # (1.6-8.9) K/mcL Lymphocytes # (0.6-4.6) K/mcL Monocytes # (0.0-1.3) K/mcL Eosinophils # (0.0-0.6) K/mcL Basophils # (0.0-0.2) K/mcL PT (9.4-12.1) Seconds INR APTT (26.0-36.0) Seconds D-Dimer 337 Sodium (136-145) mEq/L Potassium (3.5-5.1) mEq/L Chloride (98-107) mEq/L Carbon Dioxide (23-29) mEq/L BUN (6-20) mg/dL Creatinine (0.70-1.30) mg/dL Est GFR ( Amer) (> 60) Est GFR (Non-Af Amer) (> 60) BUN/Creatinine Ratio (6-26) Glucose (70-105) mg/dL Calculated Osmolality (280-300) Calcium (8.6-10.3) mg/dL Troponin I (< 0.04) ng/mL Urine Color Yellow (Yellow) Urine Clarity Clear (Clear) Urine pH 6.0 (5.0-8.0) pH Units Ur Specific [place] 1.030 H (1.010-1.025) Urine Protein Negative (Neg-Trace) mg/dL Urine Glucose (UA) >=1000 H (Normal) mg/dL Urine Ketones Negative (Negative) mg/dL Urine Blood Negative (Negative) Urine Nitrite Negative (Negative) Urine Bilirubin Negative (Negative) Urine Urobilinogen Normal (Normal) mg/dL Ur Leukocyte Esterase Negative (Negative) Ur Culture Indicated? NO (NO) Urine Opiates Screen Negative (Drztgz=099) ng/mL Ur Barbiturates Screen Negative (Arfbok=759) ng/mL Ur Phencyclidine Scrn Negative (Cutoff=25) ng/mL Ur Amphetamines Screen Negative (Upfido=0123) ng/mL U Benzodiazepines Scrn Negative (Kqskhn=705) ng/mL Urine Cocaine Screen Negative (Cutoff= 300) ng/mL U Marijuana (THC) Screen Negative (Cutoff = 50) ng/mL Ur Drug Screen Interp See Below - Radiology Data Radiology results reviewed: Yes I reviewed the patient's radiology results. Chest X-Ray 06/24/18 16:38 IMPRESSION: No radiographic evidence of acute cardiopulmonary disease. D/ / Loyd Augustine / Loyd Augustine Interpreting Provider: Loyd Augustine Head CT 06/24/18 17:03 IMPRESSION: No acute intracranial abnormality. D/ / Freya Juarez Cha, MD / Freya Juarez Cha, MD Interpreting Provider: Freya Juarez Cha, MD Head/Brain Mag Res Venography 06/24/18 17:03 IMPRESSION: Unremarkable MRV of the head. D/ / Mic Kovacs MD / Mic Kovacs MD Interpreting Provider: Mic Kovacs MD - EKG Data EKG attestation: Yes I reviewed and interpreted this EKG. EKG results narrative: 06/24/2018 at 16:34. Sinus tachycardia. Rate 109. IA 142. QRS 95. QTc 426. Normal axis. No acute ST elevation or depression. NIH Stroke Scale - Level of Consciousness LOC: Alert - LOC Questions LOC Questions: Answers both correctly - LOC Commands LOC Commands: Performs both correctly - Best Gaze Best Gaze: Normal - Visual Visual: No visual loss - Facial Palsy Facial Palsy: Normal - Motor Arms Motor Arm-Left: No drift for 10 seconds Motor Arm-Right: No drift for 10 seconds - Motor Legs Motor Leg-Left: No drift for 5 seconds Motor Leg-Right: No drift for 5 seconds - Limb Ataxia Limb Ataxia: Absent of affected limb too weak to perform exam - Sensory Sensory: Mild to moderate loss, "not as sharp" - Best Language Best Language: No aphasia - Dysarthria Dysarthria: Normal - Extinction and Inattention Extinction and Inattention: Normal - NIHSS Total Score NIHSS Total Score: 1 TPA Checklist - LKW: 3-4.5 hrs Add. Warnings/Precautions Patient/family understanding: The patient/family members have been counseled and understood the risk, benefit , and alternatives of treatment. Ellyn.Leighann - Tanika Situation: Demographics, MOA Background: Presenting Complaint, Relevant PMH, Meds, & Allergies Assessment: Vital Signs, Course and respsone to treatment, Exam Concerns, Patient/Family Expectation, Pertinant Lab Results Recommendation: Barrier(s) to disposition, Recommendation based on pending studies, treatments, or consults S.B.AModesto Report Given to: Dr. Melissa Sagastume [facility] Time: 20:44 Attestation Statement - Attestation Attestation: I, Edwardo Hobson, examined this patient and my medical decision-making was reviewed with the BONDERITE OPERATOR/PA/Advanced Practice Nurse/Resident Physician. I agree with the documented findings, disposition and treatment plan as described except to the extent set forth below. 38-year-old male presents emergency Department with concerns of right-sided facial numbness and chest pain. Patient states symptoms started acutely this morning upon waking. He noted upper respiratory infection over the past few days. No history of similar symptoms in the past. On physical examination he states that he has no sensation to cranial nerves V1, V2, V3. He has full motor strength to the bilateral upper and lower extremities as well as all the branches of cranial nerve VII. No other recent trauma. No new medications. Patient is afebrile in the emergency department. He complains of a severe headache and sinus pressure. We obtained a MRV venogram to further evaluate for venous sinus thrombosis which did not show acute abnormality. CT of the head did not show evidence of acute intracranial hemorrhage. EKG did not show evidence of acute STEMI. Initial troponin was negative. Patient felt comfortable with the plan for admission to the hospital for further care and evaluation of his chest pain.
--- NOTE | 2018-06-24 16:46 | Emergency Department Note ---
Disposition Clinical Impression: Right facial numbness, Chest pain Disposition: Admitted As Inpatient Condition: Fair General Adult HPI - General Chief complaint: ED General Medical Stated complaint: "R side face numb,dizzy,everything hurts" Time Seen by Provider: 06/24/18 16:22 Source: patient Mode of arrival: ambulatory Limitations: no limitations Nursing Notes Reviewed: Yes Vital Signs Reviewed: Yes - History of Present Illness HPI Narrative: The patient is a 38 year old male who presented with right sided facial numbness , right ear pain, headache, and chest pain. He states he woke up around 8AM with these symptoms. He went to sleep around 1AM and felt normal at that time. He reported feeling achy all over and feeling faint and having nasal congestion since this morning. He described the chest pain as superior to the left nipple and is constant and does not radiate. The headache is diffuse and he states he feels like his head is going to explode. He had a similar episode in the past but does not remember what his diagnosis was at that time. 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 He also has diabetes and is a current smoker. He denied history of stroke, AL, blood thinners, trauma. Pain Scale: 7 - Related Data Previous Rx's Medication Instructions Recorded Sertraline [Zoloft] 100 mg PO DAILY #30 tablet 03/07/18 Allergies Allergy/AdvReac Type Severity Reaction Status Date / Time codeine Allergy Hives Verified 03/05/18 12:21 Constitutional: Denies: fever, chills, weakness Eyes: Denies: eye pain, eye discharge, vision change ENT ED: Reports: ear pain (right), congestion (nasal congestion). Denies: hearing loss Cardiovascular: Reports: chest pain. Denies: dyspnea on exertion, edema, syncope Respiratory: Reports: cough. Denies: dyspnea, wheezes, sputum production Gastrointestinal: Reports: nausea. Denies: abdominal pain, vomiting, diarrhea, hematemesis, melena, hematochezia Genitourinary: Denies: hematuria Musculoskeletal: Reports: neck pain, myalgia Neurological: Reports: headache, numbness (right facial ). Denies: weakness, vertigo Past Medical History - Past Medical History Attestation: Yes The following information was validated with the patient. Source: patient Medical history: Reports: diabetes. Denies: cancer, CVA, DVT, myocardial infarction Psychiatric history: Reports: depression, prior suicide attempt - Social History Smoking Status: Current every day smoker Smokeless Tobacco Status: No Alcohol use: Reports: none Drug use: Reports: none Physical Exam - General Limitations: no limitations General appearance: alert - Head Head exam: atraumatic, normocephalic - Eye Eye exam: Present: normal appearance, PERRL, EOMI. Absent: scleral icterus, nystagmus, miosis, mydriasis - Neck Neck exam: Present: full ROM, trachea midline - Neurological Exam Neurological exam: Present: alert, oriented X3, CN II-XII intact, normal gait, motor sensory deficit (right sided facial numbness) - Skin Skin exam: Present: warm, dry Course Vital Signs Temperature 98.5 F 06/24/18 16:23 Pulse Rate 102 06/24/18 16:23 Respiratory Rate 18 06/24/18 16:23 Blood Pressure 150/84 06/24/18 16:23 O2 Sat by Pulse Oximetry 95 06/24/18 16:23 Temperature 98.5 F 06/24/18 16:30 Pulse Rate 93 06/24/18 20:52 Respiratory Rate 22 06/24/18 20:52 Blood Pressure 101/80 06/24/18 20:52 O2 Sat by Pulse Oximetry 98 06/24/18 20:52 Oxygen Delivery Oxygen Delivery Room Air Medical Decision Making - Lab Data Result diagrams: 06/24/18 16:43 06/24/18 16:37
[2018-06-24] MEDS ORDERED: Gadolinium Contrast Agent (WT Based) IV PRN (17:03)
[2018-06-24 17:17] LABS: Basophils % 0.3 %; Eosinophils # 0.1 K/mcL (0.0-0.6); Eosinophils % 0.9 %; Hematocrit 46.5 % (37.5-50.1); Hemoglobin 16.2 g/dL (12.9-16.9); Immature Granulocytes % 0.3 % (0-4); Lymphocytes # 0.9 K/mcL (0.6-4.6); Lymphocytes % 8.8 %; Mean Corpuscular HGB Conc 34.8 g/dL (31.6-35.5); Mean Corpuscular Hemoglobin 30.7 pg (28.0-33.3); Mean Corpuscular Volume 88.1 fL (83.0-100.0); Mean Platelet Volume 10.4 fL (9.4-12.4); Monocytes # 0.6 K/mcL (0.0-1.3); Monocytes % 5.7 %; Neutrophils # 8.6 K/mcL (1.6-8.9); Platelet Count 242 K/mcL (140-400); Red Blood Count 5.28 M/mcL (4.19-5.50); Red Cell Distribution Width 12.2 % (11.5-14.5)
[2018-06-24 17:20] LABS: INR 1.1; Prothrombin Time 12.3 Seconds (9.4-12.1)
[2018-06-24 17:23] LABS: Activated Partial Thrombo Time 31.3 Seconds (26.0-36.0)
[2018-06-24 17:39] LABS: BUN/Creatinine Ratio 15 (6-26); Blood Urea Nitrogen 14 mg/dL (6-20); Calcium 9.2 mg/dL (8.6-10.3); Carbon Dioxide 23 mEq/L (23-29); Chloride 103 mEq/L (98-107); Glucose 199 mg/dL (70-105); Osmolality,Calculated 288 (280-300); Potassium 3.7 mEq/L (3.5-5.1); Sodium 136 mEq/L (136-145); eGFR For Non-African Americans > 60 (> 60)
[2018-06-24 17:40] LABS: Troponin I < 0.03 ng/mL (< 0.04)
[2018-06-24] MEDS ORDERED: Aspirin 325 MG TABLET PO ONE (19:35)
[2018-06-24] MEDS ORDERED: *HR* FentaNYL (PF) 100 MCG/2 ML VIAL IVP ONE (19:37)
[2018-06-24 20:13] LABS: Bilirubin,Urine Negative (Negative); Blood,Urine Negative (Negative); Clarity,Urine Clear (Clear); Color,Urine Yellow (Yellow); Glucose,Urine (UA) >=1000 mg/dL (Normal); Ketones,Urine Negative (Negative); Leukocyte Esterase,Urine Negative (Negative); Nitrite,Urine Negative (Negative); Protein,Urine Negative (Neg-Trace); Urobilinogen,Urine Normal (Normal)
[2018-06-24 20:23] LABS: Amphetamine Screen,Urine Negative ng/mL (Cutoff=1000); Barbiturate Screen,Urine Negative ng/mL (Cutoff=200); Benzodiazepines Screen,Urine Negative ng/mL (Cutoff=200); Cannabinoid Screen,Urine Negative ng/mL (Cutoff = 50); Cocaine Screen,Urine Negative ng/mL (Cutoff= 300); Opiate Screen,Urine Negative ng/mL (Cutoff=300); Phencyclidine Screen,Urine Negative ng/mL (Cutoff=25)
[2018-06-24] MEDS ORDERED: Naloxone 0.4 MG/ML INJ IVP PRN ×2 (21:03→22:15)
[2018-06-24] MEDS ORDERED: Dextrose Gel 15 GM/37.5 ML TUBE PO PRN ×2 (21:08)
[2018-06-24] MEDS ORDERED: D5% in Water 1,000 ML IVC PRN (21:08)
[2018-06-24] MEDS ORDERED: *HR* Dextrose 50 % in Water (Syg) 50 ML SYRINGE IVP PRN (21:08)
--- NOTE | 2018-06-24 21:15 | Internal Med History&Physical ---
Date of Encounter: 06/27/18 Time of Encounter: 21:15 Internal Medicine - H&P: HPI Chief complaint: Right sided Facial numbness and Chest Pain History of present illness: Mr. Vogt is a 38 year old male 38-year-old male with a past medical history of depression, seizures, diabetes, hypertension, hyperlipidemia and a smoking history who presented to the ED complaining of of right-sided facial numbness and chest pain. Patient states symptoms started acutely after he awoke this morning. He reports numbness involving the right side of his face and around the ear associated with right ear ear pain. Patient states she has been having right-sided ear pain since 2011 and has had surgery on his right ear, possible mastoidectomy, for removal of a tumor. He states that the numbness has occurred in the past and typically flares up whenever his right ear begins to hurt. However he became concerned because the numbness persisted longer than usual and became progressively worse throughout the day. He denies any facial weakness, facial droop, drooling or slurred speech. Denies any fever or chills , trauma to the area or recent tick bite. He noted upper respiratory infection over the past few days and has been having sinus congestion. Along with his right ear pain and numbness patient also began having chest pain when he awoke this morning as well. He describes a pain as intermittent, sharp, left-sided, 7 out of 10 in intensity and nonradiating. Pain is exacerbated with coughing. He has been feeling clammy and having sweats and feeling generally sick to his stomach. No nausea or shortness of breath. Patient has a [id number] smoking history and continues to smoke. On physical examination patient has diminished sensation to cranial nerves V1, V2, V3. He has full motor strength to the bilateral upper and lower extremities as well as all the branches of cranial nerve VII. No other recent trauma. No new medications. Patient is afebrile in the emergency department. He complains of a severe headache and sinus pressure. Initial laboratory findings were unremarkable. An MRV venogram to further evaluate for venous sinus thrombosis was performed and did not show acute abnormality. CT of the head did not show evidence of acute intracranial hemorrhage. EKG was normal. Initial troponin was negative. Patient had a nuclear stress test performed in 2016 which showed no evidence of ischemia. Past Med Surg Social Fam HX - Past Medical History Medical history: cancer, diabetes, seizures Additional medical history: cancer right ear in 2012 Psychiatric history: depression, prior suicide attempt - Past Surgical History Additional surgical history: Left Knee reconstruction. tumor removed from right ear. right knee surgery - Social History Smoking Status: Current every day smoker Smokeless Tobacco Status: No Alcohol use: none Drug use: none Internal Medicine - H&P: Meds Sertraline [Zoloft] 100 mg PO DAILY #30 tablet 03/07/18 [Rx] 3 Allergy/AdvReac Type Severity Reaction Status Date / Time bee venom protein (honey bee) Allergy Hives Verified 06/25/18 01:46 codeine Allergy Hives Verified 03/05/18 12:21 All Systems PM: A 10-system review of systems was performed and is negative for pertinent findings except as documented above in the HPI. - Constitutional Constitutional: no chills, no fever(s), no night sweats - EENT Eyes: no change in vision, no discharge, no pain, no photophobia Ears: no ear discharge, no ear pain, no tinnitus Nose, mouth and throat: no dysphagia, no nasal discharge, no neck pain, no sore throat - Cardiovascular Cardiovascular ROS IM: no chest pain, no diaphoresis, no dyspnea, no lightheadedness, no palpitations, no syncope - Respiratory Respiratory: no cough, no dyspnea, no wheezing, no excessive phlegm production - Gastrointestinal Gastrointestinal: no abdominal pain, no diarrhea, no hematemesis, no hematochezia, no melena, no nausea, no vomiting - Musculoskeletal Musculoskeletal ROS IM: no numbness, no tingling - Integumentary Integumentary IM: no rash, no unusual bruising - Neurological Neurological ROS: no confusion, no convulsions, no focal weakness, no numbness, no tingling, no tremor(s) - Hematologic/Lymphatic Hematologic/Lymphatic: no easy bruising - Constitutional Vitals: Temp Pulse Resp BP Pulse Ox 98.5 F 93 22 101/80 98 06/24/18 16:30 06/24/18 20:52 06/24/18 20:52 06/24/18 20:52 06/24/18 20:52 Exam: General: Alert and oriented 3; lying in bed complaining of right ear and left chest pain Skin: Normal color, no rash, no lesions were noted around the ear or right side of the face. HEENT:EOM, pupils equal, round and reactive. Cardiovascular:Normal S1 & S2, no rubs, murmurs or gallops. No JVD. Pulse regular. Lungs:Normal breath sounds, no wheezes or crackles. Abdomen:Soft, non-tender, no rigidity. Extremities:No deformity, no edema or tenderness, no joint swelling or clubbing. Neurological: Diminished sensation to V1, V2 and V3 of the trigeminal nerve distribution. Normal cognition and motor skills. Cranial nerves II through XII grossly intact Pulses:Carotid and radial pulses normal +2. Rest of the physical exam is non contributory Internal Med - H&P Results - Labs CBC & Chem 7: 06/25/18 03:53 06/25/18 03:53 - Assessment and plan (1) Right facial numbness Status: Acute Assessment and plan: Right facial numbness involving all 3 branches of the right trigeminal nerve with diminished sensation. No evidence of facial paralysis. Based on the history this appears to be a ongoing issue especially in the setting of his right ear pain and previous history of surgery to the right ear for possible removal of a schwannoma. No evidence of rash involving that region. Possibly some form of trigeminal neuralgia or a viral infectious process. Patient is also on 2 antipsychotics the side effects of which were reviewed however there is no correlating side effect. At this time no evidence of stroke or cerebrovascular abnormality as evidenced on CT and MRI scan. We will continue supportive care for now with analgesics. Patient most likely needs outpatient follow-up with ENT or neurology. (2) Chest pain Status: Acute Assessment and plan: Acute left-sided chest pain with atypical features, exacerbated with cough. Low suspicion for acute coronary syndrome further supported by a normal EKG and negative troponins. At this time we will continue patient on telemetry, trend troponins and monitor. Patient had a nuclear stress test in 2016 which was negative for evidence of ischemia. Would recommend outpatient workup. Qualifiers: Chest pain type: unspecified Qualified Code(s): R07.9 - Chest pain, unspecified (3) Diabetes Status: Acute Assessment and plan: Diabetic diet for now. Blood glucose checks. Sliding scale insulin. Qualifiers: Diabetes mellitus type: type 2 Diabetes mellitus terminal operations manager insulin use: without intermediate use Diabetes mellitus complication status: without complication Qualified Code(s): E11.9 - Type 2 diabetes mellitus without complications (4) Depression Status: Acute Assessment and plan: Continue home medications. Qualifiers: Depression Type: unspecified Qualified Code(s): F32.9 - Major depressive disorder, single episode, unspecified - Time Spent With Patient Total time spent is greater than 50% in coordination of care (as documented) at patient's floor/unit and/or counseling patient:
[2018-06-24] MEDS ORDERED: Ibuprofen 400 MG TABLET PO PRN (22:15)
[2018-06-24] MEDS ORDERED: Ketorolac 15 MG/ML VIAL IVP PRN (22:18)
[2018-06-24] MEDS ORDERED: Insulin LISPRO 300 UNITS/3 ML VIAL SQ SCH (23:45)
[2018-06-25] MEDS ORDERED: Insulin LISPRO 300 UNITS/3 ML VIAL SQ SCH
[2018-06-25] MEDS: Fluticasone Propionate Nasal 50 MCG/SPRAY BOTTLE NS SCH ×2 (00:01→08:54)
[2018-06-25] MEDS: Nicotine 21 MG PATCH.TD24 TD SCH ×2 (00:18→08:54)
[2018-06-25 02:42] LABS: Adenovirus Not Detected (Not Detect); Bordetella Pertussis Not Detected (Not Detect); Chlamydophila pneumoniae Not Detected (Not Detect); Coronavirus 229E Not Detected (Not Detect); Coronavirus HKU1 Not Detected (Not Detect); Coronavirus NL63 Not Detected (Not Detect); Coronavirus OC43 Not Detected (Not Detect); Human Metapneumovirus Not Detected (Not Detect); Human Rhinovirus/Enterovirus DETECTED (Not Detect); Influenza A Subtype 2009 H1 Not Detected (Not Detect); Influenza A Untypeable Not Detected (Not Detect); Influenza B Not Detected (Not Detect); Mycoplasma pneumoniae Not Detected (Not Detect); Parainfluenza Virus 1 Not Detected (Not Detect); Parainfluenza Virus 2 Not Detected (Not Detect); Parainfluenza Virus 3 Not Detected (Not Detect); Parainfluenza Virus 4 Not Detected (Not Detect); Respiratory Syncytial Virus Not Detected (Not Detect)
[2018-06-25 04:22] LABS: Basophils % 0.6 %; Eosinophils # 0.1 K/mcL (0.0-0.6); Eosinophils % 1.3 %; Hematocrit 43.5 % (37.5-50.1); Hemoglobin 14.5 g/dL (12.9-16.9); Immature Granulocytes % 0.4 % (0-4); Lymphocytes # 1.8 K/mcL (0.6-4.6); Lymphocytes % 25.1 %; Mean Corpuscular HGB Conc 33.3 g/dL (31.6-35.5); Mean Corpuscular Hemoglobin 29.4 pg (28.0-33.3); Mean Corpuscular Volume 88.2 fL (83.0-100.0); Monocytes # 0.6 K/mcL (0.0-1.3); Monocytes % 8.4 %; Neutrophils # 4.6 K/mcL (1.6-8.9); Platelet Count 205 K/mcL (140-400); Red Blood Count 4.93 M/mcL (4.19-5.50); Red Cell Distribution Width 12.4 % (11.5-14.5); Segmented Neutrophils % 64.2 %
[2018-06-25 04:40] LABS: Alanine Aminotransferase 13 Units/L (7-52); Albumin 3.6 g/dL (3.5-5.7); Albumin/Globulin Ratio 1.4 (1.1-2.2); Alkaline Phosphatase 90 Units/L (34-104); Aspartate Amino Transferase 7 Units/L (13-39); BUN/Creatinine Ratio 22 (6-26); Bilirubin,Total 0.4 mg/dL (0.3-1.0); Blood Urea Nitrogen 18 mg/dL (6-20); Carbon Dioxide 25 mEq/L (23-29); Chloride 104 mEq/L (98-107); Globulin 2.6 g/dL (2.4-3.5); Glucose 240 mg/dL (70-105); Osmolality,Calculated 292 (280-300); Potassium 3.7 mEq/L (3.5-5.1); Sodium 136 mEq/L (136-145); Total Protein 6.2 g/dL (6.4-8.9); eGFR For Non-African Americans > 60 (> 60)
[2018-06-25] MEDS: Insulin LISPRO 300 UNITS/3 ML VIAL SQ SCH ×2 (08:55→11:48)
[2018-06-25 11:01] VITALS: BP 122/80
--- NOTE | 2018-06-25 16:48 | Discharge Summary ---
- NOTES TO OUTPATIENT PROVIDER Notes to Outpatient Provider: Labwork revealed Entero/rhino - supportive care - encourage fluids Date of Encounter: 06/25/18 Time of Encounter: 13:00 - Discharge Diagnosis (1) Depression Priority: Secondary Status: Acute Assessment and Plan: Continue home medications. Qualifiers: Depression Type: unspecified Qualified Code(s): F32.9 - Major depressive disorder, single episode, unspecified (2) Right facial numbness Priority: Primary Status: Acute (3) Chest pain Priority: Secondary Status: Acute Qualifiers: Chest pain type: unspecified Qualified Code(s): R07.9 - Chest pain, unspecified (4) Diabetes Priority: Secondary Status: Acute Assessment and Plan: Diabetic diet for now. Blood glucose checks. Sliding scale insulin. Qualifiers: Diabetes mellitus type: type 2 Diabetes mellitus mcfp insulin use: without watermelon inspector use Diabetes mellitus complication status: without complication Qualified Code(s): E11.9 - Type 2 diabetes mellitus without complications Hospital course: Mr. Vogt is a 38 year old male past medical hx of depression seizures DM HTN and HLD smoking- multiple ear surgeries to R ear dt cancer. Presneted to the ED with complaints of r sided facial numbness and chest pain. He states that he has had numbness in the past when his R ear hurts and this will usually resolve on it own. However the numbness persisted longer than usual and he became concerned He had no facial droop drooping or slurred speech Denies any fever or chills He has had a respiratory infection over the past few days with sinus cingestion .He also had CP which was worse on inspiration and cough . His CXR with no acute changes. He is a smoker 1 PPd . Initial laboratory findings were unremarkable. An MRV venogram to further evaluate for venous sinus thrombosis was performed and did not show acute abnormality. CT of the head did not show evidence of acute intracranial hemorrhage. EKG was normal. troponin was negative x3 . Patient had a nuclear stress test performed in 2016 which showed no evidence of ischemia.Respiratory panel did show Entero rhino virus. I do not suspect any cardiac etiology he has reproducible pain most likely rt URI- as for the numbness I suspec viral infectious process secondary to Entero rhino virus . Advised him to follow up with PCP supportive care with Tylenol and OTC cold remedy to stay hydrated and stop smoking. Also advised follow up with ENT since he has not seen ENT for some time . He is hemodynamically stable and ready for discharge Discharge discussed with: patient - Time Spent with Patient Total time spent providing and/or coordinating discharge services: - Discharge Medications Home Medications: Sertraline [Zoloft] 100 mg PO DAILY #30 tablet 03/07/18 [Rx] Allergies/Adverse Reactions: 3 Allergy/AdvReac Type Severity Reaction Status Date / Time bee venom protein (honey bee) Allergy Hives Verified 06/25/18 01:46 codeine Allergy Hives Verified 03/05/18 12:21 Date of admission: 06/24/18 20:46 Primary care physician: Jennifer Bonilla PERSONNEL COORDINATOR Discharging clinician: Cara Wick Anticipated date of discharge: 06/25/18 - Constitutional Vitals: Temp Pulse Resp BP Pulse Ox 98.5 F 86 19 122/80 97 06/25/18 11:00 06/25/18 11:00 06/25/18 11:00 06/25/18 11:00 06/25/18 11:00 General appearance: Present: A&O X 3 Exam: General: Alert and oriented 3; lying in bed complaining of right ear and left chest pain Skin: Normal color, no rash, no lesions were noted around the ear or right side of the face. HEENT:EOM, pupils equal, round and reactive. Cardiovascular:Normal S1 & S2, no rubs, murmurs or gallops. No JVD. Pulse regular. Lungs:Normal breath sounds, no wheezes or crackles. Abdomen:Soft, non-tender, no rigidity. Extremities:No deformity, no edema or tenderness, no joint swelling or clubbing. Neurological: Diminished sensation to V1, V2 and V3 of the trigeminal nerve distribution. Normal cognition and motor skills. Cranial nerves II through XII grossly intact Pulses:Carotid and radial pulses normal +2. Rest of the physical exam is non contributory - Head Head exam: Present: atraumatic, normocephalic - Eye Eye exam: Present: PERRL, conjuntiva pink, sclera anicteric Pupils: Present: PERRL - Neck Neck exam general surgery: Present: supple, trachea midline. Absent: lymphadenopathy - Respiratory Respiratory exam: Present: chest wall tenderness, CTAB. Absent: accessory muscle use, rales, rhonchi, wheezes - Cardiovascular Cardiovascular exam: Present: RRR, +S1, +S2. Absent: diastolic murmur, gallop, rubs, systolic murmur - GI/Abdominal GI/Abdominal exam: Present: normal bowel sounds, soft, no peritoneal signs. Absent: distended, tenderness - Extremities Exam Extremities exam: Present: warm, radial pulses palpable and symmetrical. Absent : calf tenderness, cyanotic, pedal edema - Neurological Exam Neurological exam: Present: CN II-XII intact, oriented X3, no focal deficits. Absent: pronater drift, facial droop, speech deficit - Skin Skin exam: Present: dry, intact - Patient Status Disposition: Home, Self-Care Condition: Fair - Discharge Instructions Follow Up With: Jennifer Bonilla PERSONNEL COORDINATOR [Primary Care Provider] - - Diet and Activity Activity: increase activity as tolerated Diet: advance to your usual diet
--- NOTE | 2018-06-27 22:25 | Electrocardiograph Report ---
[address] [place], [place] [address] Test Date: 2018-06-24 Pat Name: Nigel Vogt Department: [id number] Room: 3B Gender: M Lead Retail Sales Associate: : 1980 Requested By: Peter Franco Order Number: [id number] Reading MD: Kassidy Schmidt Measurements Intervals [place] Rate: 109 P: 61 SD: 142 QRS: 52 QRSD: 95 T: 41 QT: 316 QTc: 426 Interpretive Statements Sinus tachycardia Electronically Signed On 06-27-2018 22:24:28 EDT by Kassidy Schmidt
== END 2018-06-25 15:20 | disposition home or self-care (01) ==
LOC: EMEROOARM 16:04 → 3BNU 16:04
PROVIDERS: ADMIT Internal Medicine; ATTEND Internal Medicine